=== PATIENT | female | born 2000 | race African-American/Black ===

== ENCOUNTER 2018-11-20 22:19 | Emergency (ER) | payer MEDICAID ==
[~2018-11-20] VITALS: Ht 160 cm; Wt 54.0 kg
[2018-11-21] MEDS ORDERED: LIDOCAINE HCL 1% 20ML VIAL (Pyxis) INJ INFIL ONE (00:30)
[2018-11-21] MEDS ORDERED: CEFTRIAXONE SODIUM 250 MG/VIAL IM ONE (00:30)
[2018-11-21] MEDS ORDERED: AZITHROMYCIN 500 MG TABLET PO ONE (00:30)
[2018-11-21 00:40] LABS: CLARITY URINE CLOUDY (CLEAR); COLOR URINE YELLOW (YELLOW); KETONES URINE TRACE (NEGATIVE); LEUKOCYTE ESTERASE URINE 3+ (NEGATIVE); NITRITE URINE NEGATIVE (NEGATIVE); OCCULT BLOOD URINE NEGATIVE (NEGATIVE); PH URINE 5.5 (4.5-8.0); PROTEIN URINE TRACE (NEGATIVE); SPECIFIC GRAVITY URINE 1.023 (1.005-1.030)
[2018-11-21 02:00] VITALS: BP 118/87
[2018-11-23 05:12] LABS: CHLAMYDIA TRACHOMATIS NAA Negative (Negative); NEISSERIA GONORRHOEAE NAA Negative (Negative)
== END 2018-11-21 02:01 | disposition home or self-care (01) ==
LOC: ER 22:19
DX: N76.0 Acute vaginitis (principal); N39.0 Urinary tract infection, site not specified; Z98.890 Other specified postprocedural states
CPT/HCPCS: 81003; 87086; 87210; 87491; 87591; 96372; 99283; J0696; J3490